=== PATIENT | male | born 1975 | race Caucasian/White ===

== ENCOUNTER → 2020-09-04 17:33 | Outpatient (CLI) | payer OTHER, SELFPAY ==
--- NOTE | 2020-09-04 17:52 | MRI_ITS ---
STUDY: MRI BRAIN WITH AND WITHOUT CONTRAST REASON FOR EXAM: Male, 45 years old. sandoval, blurred vision rt eye -- sandvoal, episode of sudden rt occipital sandoval with loss of vision rt eye,08/11/20 TECHNIQUE: Standardized multiplanar fat and water weighted pulse sequences were obtained. dotarem 15ml IV was administered for the contrast portion of the examination. COMPARISON: None. FINDINGS: No intracranial mass, mass effect or midline shift. No enhancing lesion. No hemorrhage, territorial infarct or acute ischemia. Normal size of the ventricles and extra-axial spaces for the patient''s age. Normal white matter tracts of the supratentorial brain. There are prominent perivascular spaces (PVS) involving the basal ganglia. Normal thalami. There is no extra-axial fluid accumulation. Normal flow voids within the major intracranial circulation suggesting patency by spin echo criteria. There is no enhancing intra-axial or extra-axial abnormality. Normal sella turcica, pituitary gland, infundibular stalk, optic chiasm and hypothalamus. Normal midbrain, zbigniew and medulla. Normal cerebellum. Normal basal cisterns. Normal bilateral temporal bones. Normal visualized paranasal sinuses. Normal calvarium and skull base. Normal visualized soft tissue structures. MRI/Brain W/WO Contrast IMPRESSION: Normal unenhanced and enhanced MRI of the brain. Electronically Signed: Katelyn Bhatti MD at 19:36 EST Tel , Service support ,
== END ==
PROVIDERS: PCP Nurse Practitioner Primary Care; Referring Provider Nurse Practitioner Primary Care; Visit Provider Nurse Practitioner Primary Care
DX: G44.89 Other headache syndrome (principal); H53.8 Other visual disturbances
CPT/HCPCS: 70553

== ENCOUNTER → 2020-11-12 13:47 | Outpatient (CLI) | payer OTHER, SELFPAY ==
[2016-11-19 17:54] VITALS: BMI 25.4
--- NOTE | 2020-11-12 13:51 | CT_ITS ---
STUDY: CTA HEAD AND NECK WITH CONTRAST REASON FOR EXAM: Male, 45 years old. Altered mental status. Mixed headache syndrome. RADIATION DOSAGE (If Supplied By Facility): CTDIvol = ( 25.31 ) mGy, DLP = ( 1729.67 ) mGycm TECHNIQUE: CT angiography was performed with a multi-detector CT scanner. Data acquisition was obtained from the skull base through the vertex following intravenous administration of IV 100ML ISOVUE 370. MIP images were reconstructed from the axial data set. Post-processing of the angiographic images was performed, with multiplanar reformation and 3D reconstruction. Individualized dose optimization techniques were used for this CT. COMPARISON: CT of brain, 09/04/2020. FINDINGS: Normal bilateral petrous carotid arteries. Normal right cavernous carotid artery with a normal supraclinoid bifurcation. Normal left cavernous carotid artery with a normal supraclinoid bifurcation. Normal right A1 segments of the anterior cerebral artery. Normal left A1 segments of the anterior cerebral artery. Normal intact anterior communicating artery (ACOM). Normal bilateral A2 segments of the anterior cerebral arteries. Normal right M1 and M2 segments of the middle cerebral arteries, with a normal M1 bifurcation. Normal left M1 and M2 segments of the middle cerebral arteries, with a normal M1 bifurcation. Normal right posterior communicating artery (PCOM). Normal left posterior communicating artery (PCOM). Normal bilateral vertebral arteries. Normal basilar artery with a normal basilar bifurcation. The visualized bilateral superior cerebellar (SCA) arteries are normal. Normal P1, P2 and visualized P3 segments of the right posterior cerebral artery. There is hypoplasia of the P1 segment of the left posterior cerebral artery. The P2 and visualized P3 segments are supplied via the patent posterior communicating artery. There is no demonstrated aneurysm of the benton of Castaneda. There is no demonstrated abnormality of the visualized brain. AORTIC ARCH: Normal visualized aortic arch. Normal origins of the brachiocephalic, left common carotid, and left subclavian arteries. RIGHT CAROTID ARTERIES: Normal right common carotid artery (CCA). Normal right common carotid bulb. Normal origin of the right internal carotid (ICA) artery without a hemodynamically significant stenosis. Normal visualized cervical portion of the right internal carotid artery. Normal origin of the right external carotid artery (ECA). LEFT CAROTID ARTERIES: Normal left common carotid artery (CCA). Normal left common carotid bulb. Normal origin of the left internal carotid (ICA) artery without a hemodynamically significant stenosis. Normal visualized cervical portion of the left internal carotid artery. Normal origin of the left external carotid artery (ECA). VERTEBRAL ARTERIES: Normal bilateral vertebral arteries. CT/CTA Head AND Neck W/ Contrast IMPRESSION: 1. 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 The distal vessels supplied via the patent posterior communicating artery. 2. Otherwise normal benton of Castaneda. 3. Normal CTA of the carotid and vertebral arteries. Electronically Signed: Dayday Ortega DO at 17:52 EDT Tel [phone], Service support ,
== END ==
PROVIDERS: PCP Nurse Practitioner Primary Care; Referring Provider Psychiatry & Neurology Sleep Medicine; Visit Provider Psychiatry & Neurology Sleep Medicine
DX: R41.82 Altered mental status, unspecified (principal); G44.89 Other headache syndrome
CPT/HCPCS: 70496; 70498; Q9967

== ENCOUNTER 2020-12-05 16:31 | Emergency (ER) | payer OTHER, SELFPAY ==
[2020-12-05 16:32] VITALS: BP 117/65; PULSE 70; RESP 14; TEMP 36.4; O2SAT 96; BMI 26.6
--- NOTE | 2020-12-05 16:47 | ED.DCSUM_ITS ---
- ER Visit Summary Date of Service: 12/05/20 Chief Complaint: [Back pain] History of Present Illness: The patient is a 45 M [presents to the emergency department with lower back pain that started about 4 days ago.] Patient denies any direct trauma although he was doing some yard work and while edging the s [employer] with a hole he felt a sudden onset of pain in his left lower back. Patient denies any pain rating down his legs. He denies weakness in extremities. He denies any change in bowel or bladder function. Patient had pains like this in the past and in the past he has gotten either prednisone or a muscle relaxer. Patient had some leftover Flexeril and has been taken that with some ibuprofen and not helped his pain. Patient states the pain is very positional and worse with certain movements. He denies urinary symptoms. Patient has no significant medical history otherwise. Physical Examination: [HEENT-PERRLA, EOMI. Cranial nerves II through XII grossly intact. TMs clear. Mucous membranes moist. No adenopathy. Cardiovascular-regular rate and rhythm without murmur or ectopy Lungs-clear to auscultation, chest wall stable without crepitus or subcu emphysema Abdomen-normoactive bowel sounds, soft, nontender, no rebound or rigidity, no peritoneal signs. Back exam-patient does have some tenderness palpation over the lumbar paraspinal musculature on the left without evidence of tenderness over the thoracic or lumbar spine itself. Patient has negative straight leg raises. Deep tendon reflexes are plus 2 out of 4 bilaterally at the patella and Achilles. Patient has normal L5 extension bilaterally. Patient has normal sensation to light touch. Extremities-intact ?4, normal range of motion, normal pulses, atraumatic] Test Results: [None indicated] Emergency Department Course and Treatment: [] Treatment Plan: [Patient will be given a prescription for Flexeril, Naprosyn, [place]. Patient has an appointment with his primary care physician in 5 days and he is to keep that. Patient advised to return if worsening pain, weakness in extremities, change in bowel or bladder function, or condition should worsen anyway.] Disposition: [Discharged home in stable condition] Impression: [Lumbar strain] This note was generated with Veritractation software. It may contain incorrect words, spelling, and punctuation that were not noted in review of the chart prior to signing ED Disposition - Plan for ED Patient: Referrals: PodlogMaine galindo NP, POOL CLEANER-C [Primary Care Provider] -
--- NOTE | 2020-12-05 16:49 | ED.DEP ---
ED Disposition - Plan for ED Patient: Instructions: ED Back Sprain/Strain Prescriptions: cycloBENZAPRine HCl [Flexeril] 10 mg PO TID PRN #20 tab PRN Reason: Muscle Spasm Prescription Printed Naproxen [Naprosyn] 500 mg PO BID PRN #20 tablet Prescription Printed Hydrocodone Bitart/Apap 5-325 [[place] 5MG-325MG] 1 tablet PO Q4H PRN PRN 2 Days #10 tab PRN Reason: Pain Prescription Printed Referrals: MansoorlogMaine galindo NP, SCRAPER OPERATOR-C [Primary Care Provider] - 3-5 Days
== END 2020-12-05 17:03 | disposition home or self-care (01) ==
LOC: ED 16:59
PROVIDERS: Emergency Provider Emergency Medicine; PCP Nurse Practitioner Primary Care
DX: S39.012A Strain of muscle, fascia and tendon of lower back, initial encounter (principal); X58.XXXA Exposure to other specified factors, initial encounter
CPT/HCPCS: 99282

== ENCOUNTER → 2020-12-06 06:22 | Outpatient (CLI) | payer OTHER, SELFPAY ==
[2020-12-05 16:32] VITALS: BMI 26.6
--- NOTE | 2020-12-06 07:38 | TELEMED_ITS ---
[facility] has confirmed receipt of a request for visit. This document confirms receipt of the order initiating the consult. To find the results of the consultation, please view the patient's reports for the scanned Telemed Consult.
== END ==
PROVIDERS: PCP Nurse Practitioner Primary Care; Referring Provider Psychiatry & Neurology Sleep Medicine; Visit Provider Psychiatry & Neurology Sleep Medicine
DX: R40.20 Unspecified coma (principal)
CPT/HCPCS: 95819

== ENCOUNTER 2024-10-15 10:55 | Emergency (ER) | payer BC, SELFPAY ==
[2024-10-15 10:56] VITALS: BP 133/91; PULSE 121; RESP 20; TEMP 36.2; O2SAT 99; BMI 27.3
--- NOTE | 2024-10-15 11:04 | EX.ED.VIS.UR ---
HPI HPI - URI History of Present Illness Chief Complaint: Cold Sx Informant: patient Onset/Context/Timing Onset: Days (5) Context: Gradual Onset Timing: Continuous Quality: Dull, throbbing, stabbing Location: Head Worsened by: - (Movement) Relieved by: - (Nothing) Associated Symptoms Associated Symptoms: Positive for Nasal Congestion, Headache, Sinus Pressure, Diarrhea and Nonproductive cough; Negative for Myalgias, Nausea, Vomiting, Shortness of Breath, Chest Pain, Hemoptysis or Productive Cough Narrative Narrative: Patient presents with upper respiratory congestion and headache that has been getting worse over the past 5 days. Patient states that he has gradually been getting worse. Patient describes his pain as dull, throbbing, and stabbing at times. Patient states his headache is diffusely over his entire head. Patient states it is worse with any movement. Patient admits to a cough but denies any sputum production. Patient states he has had some nasal congestion and sinus pressure. Patient also admits to some diarrhea. Patient states he feels dizzy at times. Patient states he has been getting more forgetful. Patient admits to a subjective fever at home. Patient admits to some blurry vision. Patient states he has had some pain in his chest with coughing but denies any other chest pain. ROS ROS ED Constitutional Constitutional ED: Reports fever(s) and subjective; Denies chills Eyes Eyes: Reports blurry vision ENT ENT ED: Denies rhinorrhea or sore throat Cardiovascular Cardiovascular: Denies chest pain or palpitations Respiratory/Chest Respiratory/Chest: Reports cough; Denies dyspnea Gastrointestinal Gastrointestinal: Reports diarrhea; Denies nausea or vomiting Genitourinary Genitourinary ED: Denies dysuria or hematuria Musculoskeletal Musculoskeletal: Reports neck pain; Denies back pain Integumentary Denies abscess or rash Neurologic Neurologic: Reports headache(s); Denies weakness Allergic/Immunologic Allergic/Immunologic ED: Denies mouth swelling or urticaria [facility] Medical History (Updated 10/15/24 @ 13:[address] Reyes Arguello, DO) Migraine Home Medications ?Medication ?Instructions ?Recorded ?Last Taken ?Type NK 10/15/24 Unknown History Allergy/AdvReac Type Severity Reaction Status Date / Time meperidine HCl (From Demerol) Allergy Hives Verified 10/15/24 10:58 Surgical History Hx of nasal septoplasty Hx of tympanostomy tubes Social History (Updated 10/15/24 @ 11:19 by Darline Mcconnell) household members: spouse housing: house Smoking Status: Never smoker EXAM Physical Exam Const Vital Signs: 10/15/24 10:56 10/15/24 12:55 Temperature 97.1 F L Temperature Source Temporal Pulse Rate 121 H 87 Respiratory Rate 20 H Blood Pressure 133/91 H 137/78 H Blood Pressure Mean 105 97 Pulse Ox 99 Oxygen Delivery Method Room Air Positive well nourished and well developed General Appearance ED: well developed and NAD HEENT Reports moist mucous membranes normocephalic and atraumatic Eyes EOMs intact bilaterally Neck supple, no meningeal signs and no JVD Resp normal respiratory effort and clear to auscultation bilaterally Cardio Rate: regular rate Rhythm: regular rhythm GI non-tender and non-distended Palpation: soft Extremity normal to inspection and full ROM Neuro oriented x3, CN's II-XII intact bilaterally and no sensory deficits noted Sensorium / Orientation: alert Motor Exam: strength 5/5 throughout MDM MDM MDM Narrative Medical decision making narrative: Differential diagnosis includes intracranial bleeding, sinusitis, migraine headache, viral upper respiratory infection, dehydration, and electrolyte abnormality. CT scan of the brain will be obtained to assess for intracranial bleeding. COVID-19, influenza, and RSV PCR will be obtained to assess for viral illness. CBC will be obtained to assess for leukocytosis and anemia. Basic metabolic profile will be obtained to assess for electrolyte abnormality and renal function. Lab Data Attestation: I reviewed the patient's lab results. Lab results narrative: CBC was reviewed and was within normal limits. Basic metabolic profile was reviewed and was within normal limits. COVID-19 PCR was reviewed and was negative. Influenza PCR was reviewed and was negative for influenza A and influenza B. RSV PCR was reviewed and was negative. Labs: Laboratory Results - last 24 hr 10/15/24 11:16 WBC 9.1 RBC 4.79 Hgb 14.6 Hct 42.9 MCV 89.6 MCH 30.5 MCHC 34.0 RDW Std Deviation 41.9 RDW Coeff of Dilan 12.7 Plt Count 241 MPV 9.9 Immature Gran % (Auto) 0.300 Neut % (Auto) 79.9 H Lymph % (Auto) 9.1 L Taliaferro % (Auto) 10.1 H Eos % (Auto) 0.3 Baso % (Auto) 0.3 Absolute Neuts (auto) 7.3 Absolute Lymphs (auto) 0.83 Nucleated RBC % 0 Sodium 139 Potassium 3.8 Chloride 107 Carbon Dioxide 27.0 Anion Gap 5 BUN 10 Creatinine 1.02 Estim Creat Clear Calc 87.47 Est GFR (MDRD) Af Amer 101 Est GFR (MDRD) Non-Af 83 BUN/Creatinine Ratio 9.8 L Glucose 124 H Calcium 9.4 Radiography Diagnostic Testing: Clinical Impression(s) from Imaging Studies Brain CT 10/15/24 12:27 IMPRESSION: 1. No acute intracranial abnormality 2. Chronic sinusitis Reading Location: [facility] CT scan of the brain was obtained. There is no acute intracranial abnormality. There is chronic sinusitis. This was interpreted by the radiologist and was also independently reviewed by myself. Treatment and Re-Evaluation Narrative: Patient was given IV fluids, Reglan, Benadryl. Patient states his headache has improved with this but is not resolved. Patient was given injection of Imitrex and Toradol. The patient was instructed to go home and rest in a dark quiet room. Patient was instructed to follow-up with his primary care physician in 5 to 7 days for further evaluation. Patient understood and was agreeable with the plan. All questions were answered. Discharge Plan Triage Chief Complaint: Cold Sx ED Provider: Reyes Arguello Dx/Rx/DC Orders Clinical Impression: Headache, Elevated blood pressure reading Instructions: Migraines and Cluster Headaches, Understanding Headache Pain Prescriptions: No Action NK Primary Care Provider: Care Physician,No Primary Referrals: Maine Cunningham NP, CLINIC DIRECTOR-C [Non-Staff] - 5-7 Days Print Language: French Disposition Disposition: Home, Self Care
[2024-10-15] MEDS: 0.9% Normal Saline (1000mL) 1,000 ML 999 ML IV ×2 (11:26→13:16)
[2024-10-15] MEDS: Metoclopramide 10 MG/2 ML Vial IV (11:27)
[2024-10-15] MEDS: DiphenhydrAMINE 50 MG/ML Syringe 25 MG IV (11:27)
[2024-10-15 11:28] LABS: Absolute Lymphocyte Count 0.83 X10^3/uL (0.83-4.51); Absolute Neutrophil Count 7.3 X10^3/uL (2.0-7.7); Basophil# 0.03 X10^3/uL; Basophil% 0.3 % (0-1); Eosinophil# 0.03 X10^3/uL; Eosinophils% 0.3 % (0-5); Hematocrit 42.9 % (40-54); Hemoglobin 14.6 g/dL (13.0-16.5); Lymphocyte # 0.83 X10^3/ul (0.83-4.51); Lymphocyte % 9.1 % (19-41); Mean Corpuscular Hgb 30.5 pg (27.0-32.0); Mean Corpuscular Volume 89.6 fL (80-94); Mean Platelet Vol. 9.9 fl (6.2-12.0); Monocyte# 0.92 X10^3/uL; Monocyte% 10.1 % (0-10); NRBC Flagged by Analyzer 0 % (0-5); Neutrophil # 7.27 X10^3/uL (2.7-7.7); Neutrophil % 79.9 % (47-70); Platelet Count 241 K/mm3 (150-450); RBC Distribution Width CV 12.7 % (11.6-14.6); RBC Distribution Width SD 41.9 fl (35.1-43.9); Red Blood Count 4.79 M/mm3 (4.6-6.2); White Blood Count 9.1 K/mm3 (4.4-11.0)
[2024-10-15 11:39] LABS: Anion Gap 5 (5-15); BUN 10 mg/dL (7-18); BUN/Creat Ratio 9.8 RATIO (10-20); Calcium,Total 9.4 mg/dL (8.5-10.1); Chloride 107 mmol/L (98-107); Creatinine, Serum 1.02 mg/dL (0.70-1.30); EST Glomerular Filtration Rate 83 mL/min (>60); Est Glom Filt Rate - Afr Amer 101 mL/min (>60); Estimated Creatinine Clearance 87.47 ml/min; Glucose 124 mg/dL (74-106); Potassium 3.8 mmol/L (3.5-5.1); Sodium Level 139 mmol/L (136-145)
--- NOTE | 2024-10-15 12:27 | CT_ITS ---
EXAM: BRAIN/HEAD WITHOUT CONTRAST CLINICAL HISTORY: Pain COMPARISON: None. TECHNIQUE: Noncontrast images of the head with multiplanar reconstructions. Dose reduction techniques were used including intermediate exposure control (AEC),iterative reconstruction technique, and/or mA and/or KV dose adjustments based on patient's size. FINDINGS: CT HEAD FINDINGS: No acute intracranial hemorrhage, mass, mass effect, midline shift or pathologic extra-axial fluid collection. No hydrocephalus. Age- appropriate cerebral volume and white matter. Mild thickening of the frontal, maxillary and ethmoid sinuses. Thickening of the right nasal turbinates. The calvarium is grossly intact. CT/Brain/Head without Contrast IMPRESSION: 1. No acute intracranial abnormality 2. Chronic sinusitis Reading Location: [facility]
[2024-10-15 12:55] VITALS: BP 137/78; PULSE 87
[2024-10-15] MEDS: SUMAtriptan 6 MG/0.5 ML Vial SC (13:14)
[2024-10-15] MEDS: Ketorolac 30 MG/ML Syringe IV (13:14)
[2024-10-15 13:23] VITALS: BP 133/90; PULSE 89; RESP 16; TEMP 36.8; O2SAT 99
== END 2024-10-15 13:55 | disposition home or self-care (01) ==
PROVIDERS: Emergency Provider Emergency Medicine; Visit Provider Emergency Medicine
DX: R51.9 Headache, unspecified (principal); R03.0 Elevated blood-pressure reading, without diagnosis of hypertension; R09.81 Nasal congestion; R05.9 Cough, unspecified; R19.7 Diarrhea, unspecified; R42 Dizziness and giddiness
CPT/HCPCS: 70450; 80048; 85025; 87631; 96361; 96372; 96374; 96375; 99283; A4216; J3030